=== PATIENT | male | born 1980 | race Caucasian/White ===

== ENCOUNTER 2023-06-20 16:43 | Outpatient (CLI) | payer MEDICARE, SELFPAY | END 2023-06-20 16:44 | disposition home or self-care (01) | LOC: AMB 06-23 12:03 | PROVIDERS: Visit Provider Emergency Medicine Emergency Medical Services | DX: F10.129 Alcohol abuse with intoxication, unspecified (principal) | CPT/HCPCS: A0425; A0429 ==

== ENCOUNTER 2023-06-20 17:34 | Emergency (ER) | payer MEDICARE, SELFPAY ==
[2023-06-20] VITALS (7 sets, daily range): BP systolic 105–140; BP diastolic 66–102; PULSE 95–112; RESP 16–22; TEMP 36.6; O2SAT 90–98; BMI 28.1
[2023-06-20] MEDS: LORazepam 2 MG/ML inj IV (18:00)
--- NOTE | 2023-06-20 18:01 | ED.ALCOHOL ---
HPI - Alcohol General Chief Complaint: Alcohol/Intoxication Stated Complaint: Intoxicated Time Seen by Provider: 06/20/23 18:01 History of Present Illness HPI narrative: This 42-year-old male comes in by ambulance because of alcohol intoxication. He admits that he is a chronic alcoholic. He states that he has been through treatment in the past and knows that he needs help. He states that he drinks hard liquor and does so every day. He does report a history of seizures but does not have any seizure symptoms recently. He has a rather labile mood and is mostly remorseful and tearful. He is repeatedly stating do not be mad at me and I am really a good person.He denies using any other street drugs. Initially he stated his last drink was last night but then decided to be more honest and stated that it was prior to arrival. Related Data Home Medications Medication Instructions Recorded Confirmed dextroamphetamine-amphetamine 10 1 tab PO DAILY 06/20/23 06/20/23 mg tablet dextroamphetamine-amphetamine ER 1 cap PO DAILY 06/20/23 06/20/23 30 mg 24hr capsule,extend release (Adderall XR) disulfiram 250 mg tablet 250 mg PO DAILY 06/20/23 06/20/23 escitalopram oxalate 10 mg tablet 10 mg PO DAILY 06/20/23 06/20/23 folic acid 1 mg tablet 1 mg PO DAILY 06/20/23 06/20/23 gabapentin 800 mg tablet 800 mg PO QID 06/20/23 06/20/23 hydroxyzine pamoate 25 mg capsule PO 06/20/23 pantoprazole 40 mg tablet,delayed 40 mg PO DAILY 06/20/23 06/20/23 release quetiapine 50 mg tablet 50 mg PO QPM 06/20/23 06/20/23 thiamine HCl (vitamin B1) 100 mg 100 mg PO DAILY 06/20/23 06/20/23 tablet Allergies Allergy/AdvReac Type Severity Reaction Status Date / Time aspirin Allergy Intermediate Verified 06/20/23 17:49 Review of Systems Status of ROS Reports: unobtainable due to mental status PFSH PFSH Social History Smoking Status: Unknown if ever smoked How often do you have a drink containing alcohol: 4 or more times a week How many standard drinks containing alcohol do you have on a typical day: 10 or more How often do you have six or more drinks on one occasion: Daily or almost daily AUDIT-C Alcohol total score: 12 Exam Narrative: Exam Narrative: Constitutional: Well-developed, well-nourished. HEENT: Normocephalic, atraumatic. Neck: Normal range of motion. Nontender. Supple. Heart: Regular. No murmurs. Tachycardia due to alcohol abuse. Intact distal pulses. Lungs: Clear to auscultation. No chest discomfort. No wheezes, rhonchi, or rales. Abdomen: Normal bowel sounds. Nontender. No rebound tenderness. Genitalia: Deferred. Back: No midline tenderness. Normal range of motion. Extremities: Normal range of motion. No injury. Skin: Intact. No rash. Warm. No erythema or pallor. Neurologic: No altered sensation. No weakness. Alert and oriented. Psychiatric: Remorseful and tearful. Labile mood. Intoxicated with alcohol. Nursing notes and vitals signs are reviewed. Const: Vital Signs, click to edit/add: Vital Signs - 24 hr 06/20/23 17:40 06/20/23 18:30 06/20/23 19:00 Temperature 97.9 F Pulse Rate [Pulse Oximeter] 109 H 105 H Respiratory Rate 22 16 Blood Pressure [Ri ght Upper Arm] 140/102 H 114/80 123/83 Pulse Oximetry 98 96 Oxygen Delivery Me thod Room Air Room Air 06/20/23 19:24 06/20/23 20:06 06/20/23 20:48 Temperature Pulse Rate [Pulse Oximeter] 107 H 111 H 112 H Respiratory Rate 16 16 Blood Pressure [Ri ght Upper Arm] 105/66 117/68 109/70 Pulse Oximetry 94 93 90 Oxygen Delivery Me thod Room Air Room Air 06/20/23 22:27 Temperature Pulse Rate [Pulse Oximeter] 95 Respiratory Rate 20 Blood Pressure [Ri ght Upper Arm] 123/91 H Pulse Oximetry 95 Oxygen Delivery Me thod Room Air Course Vital Signs Vital signs: Initial Vital Signs Temperature 97.9 F 06/20/23 17:40 Temperature Source Temporal Artery Scan 06/20/23 17:40 Pulse Rate 109 H 06/20/23 17:40 Respiratory Rate 22 06/20/23 17:40 Blood Pressure 140/102 H 06/20/23 17:40 Blood Pressure Mean 114 H 06/20/23 17:40 Blood Pressure Position Sitting 06/20/23 17:40 Pulse Oximetry 98 06/20/23 17:40 Oxygen Delivery Method Room Air 06/20/23 17:40 Vital Signs Temperature 97.9 F 06/20/23 17:40 Pulse Rate 109 H 06/20/23 17:40 Respiratory Rate 22 06/20/23 17:40 Blood Pressure 140/102 H 06/20/23 17:40 Pulse Oximetry 98 06/20/23 17:40 Oxygen Delivery Method Room Air 06/20/23 17:40 Temperature 97.9 F 06/20/23 17:40 Pulse Rate 95 06/20/23 22:27 Respiratory Rate 20 06/20/23 22:27 Blood Pressure 123/91 H 06/20/23 22:27 Pulse Oximetry 95 06/20/23 22:27 Oxygen Delivery Method Room Air 06/20/23 22:27 Medications Administered Medications: Generic Name Dose Route Start Last Admin Trade Name Freq PRN Reason Stop Dose Admin Lorazepam 1 - 2 mg 06/20/23 18:23 06/20/23 18:35 Lorazepam 2 Mg/Ml Inj IVP 2 mg Q1H PRN Administration Alcohol Withdrawal Ondansetron HCl 4 mg 06/20/23 18:22 06/20/23 18:30 Ondansetron 2 Mg/Ml Inj IVP 4 mg Q4H PRN Administration Nausea Discontinued Medications Generic Name Dose Route Start Last Admin Trade Name Freq PRN Reason Stop Dose Admin Lorazepam 2 mg 06/20/23 18:00 06/20/23 18:00 Lorazepam 2 Mg/Ml Inj IV 06/20/23 18:01 2 mg ONCE ONE Administration Olanzapine 5 mg 06/20/23 19:00 06/20/23 19:05 Olanzapine 5 Mg/Ml Inj IVP 06/20/23 19:01 5 mg ONCE ONE Administration MDM - Alcohol Lab Data Labs: Lab Results 06/20/23 06/20/23 Range/Units 17:51 18:00 WBC 6.48 (4.50-11.00) K/uL RBC 4.84 (4.30-5.90) m/uL Hgb 15.8 (13.5-17.5) gm/dL Hct 45.8 (37.0-53.0) % MCV 95 (80-100) fL MCH 33 (26-34) pg MCHC 35 (32-36) gm/dL RDW Coeff of [place] 12.9 (11.5-15.5) % Plt Count 309 (140-440) K/uL Neut % (Auto) 60.2 (42.0-72.0) % Lymph % (Auto) 33.8 (20-44) % [place] % (Auto) 5.6 (0.0-11.0) % Eos % (Auto) 0.0 (0.0-7.0) % Baso % (Auto) 0.2 (0.0-3.0) % Neut # (Auto) 3.91 (1.7-7.0) K/uL Lymph # (Auto) 2.19 (0.90-2.90) K/uL [place] # (Auto) 0.40 (0.00-0.90) K/UL Eos # (Auto) 0.00 (0.00-0.50) K/uL Baso # (Auto) 0.01 (0.00-0.30) K/uL Abs Immat Gran (auto) 0.01 (0.00-0.30) K/uL Imm/Tot Granulo (auto) 0.2 % Sodium 141 (135-149) mmol/L Potassium 3.8 (3.6-5.1) mmol/L Chloride 105 (96-114) mmol/L Carbon Dioxide 23 (20-32) mmol/L Anion Gap 13 (7-15) mEq/L BUN 11 (5-24) mg/dL Creatinine 0.7 (0.5-1.5) mg/dL Estimated Creat Clear 133.00 Estimated GFR 118 ml/min Glucose 131 H (60-115) mg/dL Calcium 9.1 (8.4-10.6) mg/dL Total Bilirubin 0.7 (0.1-1.5) mg/dL AST 45 H (12-35) U/L ALT 25 (4-50) U/L Alkaline Phosphatase 106 (40-150) U/L Total Protein 8.5 H (6.0-8.3) g/dL Albumin 5.1 H (3.3-5.0) g/dL Urine Opiates Screen Negative (Negative) Ur Oxycodone Screen Negative (Negative) Urine Methadone Screen Negative (Negative) Ur Barbiturates Screen Negative (Negative) U Tricyclic Antidepress Negative (Negative) Ur Phencyclidine Scrn Negative (Negative) Ur Amphetamines Screen Negative (Negative) U Methamphetamines Scrn Negative (Negative) U Benzodiazepines Scrn Negative (Negative) Urine Cocaine Screen Negative (Negative) U Marijuana (THC) Screen POSITIVE A (Negative) Ur Drug Screen Comment See Note Ethyl Alcohol 0.33 H* (0.01-0.03) % Discharge Plan Discharge Prescriptions: No Action dextroamphetamine-amphetamine 10 mg tablet 1 tab PO DAILY thiamine HCl (vitamin B1) 100 mg tablet 100 mg PO DAILY disulfiram 250 mg tablet 250 mg PO DAILY gabapentin 800 mg tablet 800 mg PO QID pantoprazole 40 mg tablet,delayed release (DR/EC) 40 mg PO DAILY folic acid 1 mg tablet 1 mg PO DAILY dextroamphetamine-amphetamine [Adderall XR] 30 mg capsule,extended release 24hr 1 cap PO DAILY hydroxyzine pamoate 25 mg capsule PO escitalopram oxalate 10 mg tablet 10 mg PO DAILY quetiapine 50 mg tablet 50 mg PO QPM Follow Up/Referrals: Provider,Not a Local [Primary Care Provider] -
[2023-06-20 18:07] LABS: Basophils Absolute Auto 0.01 K/uL (0.00-0.30); Basophils Percent Auto 0.2 % (0.0-3.0); Hematocrit 45.8 % (37.0-53.0); Hemoglobin* 15.8 gm/dL (13.5-17.5); Immature Granulocytes Abs Auto 0.01 K/uL (0.00-0.30); Immature Granulocytes Pct Auto 0.2 %; Lymphocytes Absolute Auto 2.19 K/uL (0.90-2.90); Lymphocytes Percent Auto 33.8 % (20-44); Mean Corpuscular HGB Conc 35 gm/dL (32-36); Mean Corpuscular Hemoglobin 33 pg (26-34); Mean Corpuscular Volume 95 fL (80-100); Monocytes Percent Auto 5.6 % (0.0-11.0); Neutrophils Absolute Auto 3.91 K/uL (1.7-7.0); Neutrophils Percent Auto 60.2 % (42.0-72.0); Platelet Count* 309 K/uL (140-440); RDW Coefficient of Variation % 12.9 % (11.5-15.5); Red Blood Count 4.84 m/uL (4.30-5.90); White Blood Count* 6.48 K/uL (4.50-11.00)
[2023-06-20 18:08] LABS: Amphetamine Screen Urine Negative (Negative); Barbiturate Screen Urine Negative (Negative); Benzodiazepines Screen Urine Negative (Negative); Cannabinoid Screen Urine POSITIVE (Negative); Cocaine Screen Urine Negative (Negative); Methadone Screen Urine Negative (Negative); Methamphetamines Screen Urine Negative (Negative); Opiate Screen Urine Negative (Negative); Oxycodone Screen Urine Negative (Negative); Phencyclidine Screen Urine Negative (Negative); Tricyclic Antidepressant Urine Negative (Negative)
[2023-06-20 18:16] LABS: Slide Review Reflex No
[2023-06-20 18:21] LABS: Albumin* 5.1 g/dL (3.3-5.0)
[2023-06-20 18:22] LABS: Chloride* 105 mmol/L (96-114); Potassium* 3.8 mmol/L (3.6-5.1); Sodium* 141 mmol/L (135-149)
[2023-06-20 18:24] LABS: Anion Gap 13 mEq/L (7-15); Bilirubin Total* 0.7 mg/dL (0.1-1.5); Carbon Dioxide* 23 mmol/L (20-32); Creatinine* 0.7 mg/dL (0.5-1.5); Estimated Glomerular Filt Rate 118 ml/min
[2023-06-20 18:25] LABS: Alanine Aminotransferase* 25 U/L (4-50); Alkaline Phosphatase* 106 U/L (40-150); Aspartate Amino Transferase* 45 U/L (12-35); Blood Urea Nitrogen* 11 mg/dL (5-24); Calcium* 9.1 mg/dL (8.4-10.6); Glucose* 131 mg/dL (60-115); Total Protein* 8.5 g/dL (6.0-8.3)
[2023-06-20] MEDS: ONDANSETRON 2 MG/ML inj 4 MG IVP (18:30)
[2023-06-20] MEDS: LORazepam 2 MG/ML inj IVP (18:35)
[2023-06-20] MEDS: OLANZapine 5 MG/ML inj IVP (19:05)
[2023-06-20 19:22] LABS: Ethanol* 0.33 % (0.01-0.03)
[2023-06-21 00:13] VITALS: PULSE 95; O2SAT 96
== END 2023-06-21 08:15 | disposition home or self-care (01) ==
PROVIDERS: Emergency Provider Emergency Medicine Emergency Medical Services
DX: F10.129 Alcohol abuse with intoxication, unspecified (principal)
CPT/HCPCS: 36415; 80053; 80306; 82077; 85025; 96374; 96375; 96376; 99283; 99284; J2060; J2405

== ENCOUNTER 2023-06-21 16:40 | Outpatient (CLI) | payer MEDICARE, SELFPAY | END 2023-06-21 16:41 | disposition home or self-care (01) | LOC: AMB 06-23 13:46 | PROVIDERS: Visit Provider Emergency Medicine | DX: F10.129 Alcohol abuse with intoxication, unspecified (principal); R41.82 Altered mental status, unspecified | CPT/HCPCS: A0425; A0429 ==

== ENCOUNTER 2023-08-22 13:42 | Outpatient (CLI) | payer MEDICARE, SELFPAY | END 2023-08-22 13:43 | disposition home or self-care (01) | LOC: AMB 08-24 06:18 | PROVIDERS: Visit Provider Family Medicine | DX: F10.129 Alcohol abuse with intoxication, unspecified (principal) | CPT/HCPCS: A0425; A0427 ==

== ENCOUNTER 2023-12-01 12:58 | Outpatient (CLI) | payer MEDICARE, SELFPAY | END 2023-12-01 12:59 | disposition home or self-care (01) | LOC: AMB 12-17 15:57 | PROVIDERS: Visit Provider Emergency Medicine Emergency Medical Services | DX: F10.129 Alcohol abuse with intoxication, unspecified (principal); R45.851 Suicidal ideations | CPT/HCPCS: A0425; A0427 ==

== ENCOUNTER 2023-12-03 17:38 | Outpatient (CLI) | payer MEDICAID, SELFPAY | END 2023-12-03 17:39 | disposition home or self-care (01) | LOC: AMB 12-21 00:36 | PROVIDERS: Visit Provider Emergency Medicine | DX: R45.851 Suicidal ideations (principal); F10.129 Alcohol abuse with intoxication, unspecified; R41.82 Altered mental status, unspecified | CPT/HCPCS: A0425; A0427 ==

== ENCOUNTER 2024-12-08 07:28 | Outpatient (CLI) | payer BC, SELFPAY | END 2024-12-08 07:29 | disposition home or self-care (01) | LOC: AMB 12-09 11:00 | PROVIDERS: Visit Provider Family Medicine | DX: R41.82 Altered mental status, unspecified (principal) | CPT/HCPCS: A0425; A0427 ==

== ENCOUNTER 2024-12-22 04:51 | Outpatient (CLI) | payer BC, SELFPAY | END 2024-12-22 04:52 | disposition home or self-care (01) | LOC: AMB 18:28 | PROVIDERS: Visit Provider Family Medicine | DX: F10.129 Alcohol abuse with intoxication, unspecified (principal); R41.82 Altered mental status, unspecified | CPT/HCPCS: A0425; A0427 ==